=== PATIENT | female | born 1965 | race Caucasian/White ===

== ENCOUNTER 2022-02-14 16:09 | Observation (INO) | payer BC, OTHER ==
[~2022-02-14] VITALS: Ht 165.1 cm; Wt 55.7 kg
[2022-02-14] MEDS ORDERED: ISOVUE-370 76% 100ML VIAL As Ordered ONE (16:58)
[2022-02-14 17:28] LABS: BASO # 0.1 10^3/uL (0.0-0.2); BASO % 0.7 % (0.0-1.0); EOS # 0.1 10^3/uL (0.0-0.5); HEMATOCRIT 37.6 % (36.0-47.0); HEMOGLOBIN 12.7 g/dl (12.0-15.5); LYMPH # 2.7 10^3/uL (1.5-5.0); MEAN CORPUSCULAR HEMOGLOBIN 30.2 pg (27.0-33.0); MEAN CORPUSCULAR HGB CONC 33.8 g/dl (32.0-36.5); MEAN CORPUSCULAR VOLUME 89.3 fl (80.0-96.0); MONO # 0.5 10^3/uL (0.0-0.8); MONO % 7.3 % (2.0-8.0); NEUTROPHILS # 3.9 10^3/uL (1.5-8.5); NEUTROPHILS % 53.7 % (36.0-66.0); PLATELET COUNT, AUTOMATED 341 10^3/uL (150-450); RED BLOOD COUNT 4.21 10^6/uL (4.00-5.40); WHITE BLOOD COUNT 7.2 10^3/uL (4.0-10.0)
[2022-02-14 17:36] LABS: INR 0.88; PROTHROMBIN TIME 12.3 SECONDS (12.7-14.5)
[2022-02-14 17:37] LABS: PARTIAL THROMBOPLASTIN TIME 30.3 SECONDS (25.9-37.0)
[2022-02-14 17:49] LABS: BLOOD UREA NITROGEN 11 MG/DL (7-18); CALCIUM LEVEL 9.3 MG/DL (8.5-10.1); CARBON DIOXIDE LEVEL 28 MEQ/L (21-32); CHLORIDE LEVEL 109 MEQ/L (98-107); CREATININE FOR GFR 0.92 MG/DL (0.55-1.30); GLOMERULAR FILTRATION RATE > 60.0 (>51); GLUCOSE, FASTING 95 MG/DL (70-100); POTASSIUM SERUM 4.1 MEQ/L (3.5-5.1); SODIUM LEVEL 142 MEQ/L (136-145)
[2022-02-14 17:52] LABS: CK-MB VALUE MASS 2.3 NG/ML (<3.6)
[2022-02-14 17:53] LABS: MB/CK RELATIVE INDEX 2.47 (< OR =4)
[2022-02-14] MEDS ORDERED: ASPIRIN 325 MG TAB PO ONE (18:05)
[2022-02-14 18:23] LABS: C REACTIVE PROTEIN QUANTITATIV < 0.30 MG/DL (0.00-0.30)
[2022-02-14] MEDS ORDERED: IBUP80TA PO (18:23)
[2022-02-14] MEDS ORDERED: HOME MED LIST COMPLETE! XX SCH (18:25)
[2022-02-14 18:44] LABS: ERYTHROCYTE SEDIMENTATION RATE 4 mm/hr (0-30)
[2022-02-14 18:47] LABS: RSV AMPLIFICATION NEGATIVE (NEGATIVE)
[2022-02-14] MEDS: ATORVASTATIN 20 MG TAB PO SCH ×2 (21:00→22:15)
[2022-02-14 21:17] VITALS: BP 126/83
[2022-02-15] VITALS: BP 113/61
[2022-02-15] LABS: CHOLESTEROL LEVEL 229 MG/DL (<200); CHOLESTEROL RISK RATIO 2.573 (<5); HDL CHOLESTEROL 89 MG/DL (>40); LDL CHOLESTEROL 124 MG/DL (<100); NON-HDL-C 140 MG/DL; TRIGLYCERIDES LEVEL 78 MG/DL (<150)
[2022-02-15 04:00] VITALS: BP 125/71
[2022-02-15 06:35] LABS: HEMOGLOBIN A1c 5.4 %
[2022-02-15 08:00] VITALS: BP 115/62
[2022-02-15] MEDS ORDERED: ENOXAPARIN 40MG/0.4ML SYRINGE (J1650 PER 10MG) SC SCH (09:00)
[2022-02-15] MEDS ORDERED: ASPIRIN 81MG ENTERIC TABLET PO SCH (09:00)
[2022-02-15] MEDS ORDERED: ATOR80TA59 PO (10:38)
[2022-02-15] MEDS ORDERED: ASPI-551 PO (10:38)
== END 2022-02-15 16:05 | disposition home or self-care (01) ==
LOC: M ED 16:09 → M ED INP 16:10 → M PCU 19:24 → ENRESERV 19:26 → M PCU 21:17
PROVIDERS: ADMIT Internal Medicine; ATTEND Internal Medicine
DX: G45.9 Transient cerebral ischemic attack, unspecified (principal); G43.909 Migraine, unspecified, not intractable, without status migrainosus; H53.122 Transient visual loss, left eye; Z79.82 Long term (current) use of aspirin; F17.218 Nicotine dependence, cigarettes, with other nicotine-induced disorders; Z79.899 Other long term (current) drug therapy
CPT/HCPCS: 36415; 70450; 70496; 70498; 70551; 71045; 80047; 80048; 80061; 82550; 82553; 83036; 84484; 85025; 85610; 85652; 85730; 86140; 87631; 93005; 93041; 93880; 94760; 99285; Q9967

== ENCOUNTER → 2022-04-16 | Outpatient (REF) | payer BC ==
[~2022-04-16] MED LIST: ASPI-551 PO; ATOR80TA59 PO; IBUP80TA PO
== END ==
LOC: M LAB REF 12:53
PROVIDERS: ATTEND Internal Medicine
DX: Z01.89 Encounter for other specified special examinations (principal)

== ENCOUNTER → 2025-11-05 | Outpatient (REF) | payer OTHER ==
[2025-11-07 14:43] LABS: HPV APTIMA Detected (Not Detected)
== END ==
LOC: M LAB REF 17:57
PROVIDERS: ATTEND Nurse Practitioner Family
DX: Z12.4 Encounter for screening for malignant neoplasm of cervix (principal); R87.613 High grade squamous intraepithelial lesion on cytologic smear of cervix (HGSIL)
CPT/HCPCS: 87624; G0123